=== PATIENT | male | born 1940 | race Caucasian/White ===

== ENCOUNTER 2017-11-16 06:42 | Day surgery (SDC) | payer MEDICARE ==
[~2017-11-16] VITALS: Ht 177.8 cm; Wt 85.1 kg
[~2017-11-16 06:42] MED LIST: BUDE.5I NEB; BUSP15TA PO; BYST10TA2 PO; DIGO0.127 PO; FENO145T2 PO; FLUT50SP EACH NARE; LORA1TAB PO; LOVA40TA PO; NITR.3 SL; OMEP20TA PO; OXYC1SOL5 PO; PERF20NE NEB; PERI8.6T PO; TAMS.4 PO; TRAM50 PO; WARF2TAB PO
[2017-11-16] MEDS ORDERED: IOHEXOL 350 MG/ML 50 ML BTL (for Cath Lab) OTHER ONE (06:43)
[2017-11-16 07:30] VITALS: BP 141/76; PULSE 61; RESP 20; O2SAT 93
--- NOTE | 2017-11-16 07:45 | HHI.HP ---
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 Developed L LE rest pain but no tissue loss. Presents for angiographic evaluation. Past/Family/Social History Past Medical History PAD HTN COPD anxiety a fib XOL Past Surgical History L LE bypass umbilical hernia repair eye surgery vasectomy Social History nonsmoker Family History NC Home Medications Active Scripts Oxycodone W/ Acetaminophen (Oxycodone/Acetaminophen 5-325 mg/5Ml) 1 Tab Tab, 1 TAB PO q6h Y for PAIN 6-10, #40 TAB 0 Refills Prov:Wendy Calzada MD 11/26/14 Tramadol Hcl (Ultram) 50 Mg Tab, 50 MG PO Q8H Y for PAIN 1-5, #45 TAB 0 Refills Prov:Wendy Calzada MD 11/26/14 Tamsulosin HCl (Tamsulosin HCl) 0.4 Mg Cap, 0.4 MG PO DAILY, #30 CAP Prov:Wendy Calzada MD 11/25/14 Sennosides-Docusate Sodium (Omaira-Colace 8.6-50 mg) 1 Tab Tab, 1 TAB PO BID Y for CONSTIPATION, #60 TAB Prov:Wendy Calzada MD 11/25/14 Reported Medications Nitroglycerin (Nitrostat) 0.3 Mg Subl, 0.125 MG SL PRN, TAB FOR CHEST PAIN 11/08/14 Lorazepam (Lorazepam) 1 Mg Tab, 1 MG PO TID, TAB 11/08/14 Fluticasone Propionate (Nasal) (Fluticasone Propionate (Nasal)) 50 Mcg Spr, 1 SPRAY EACH NARE DAILY, BTLE 11/08/14 Digoxin (Digox 0.125 mg) 0.125 Mg Tab, 0.125 MG PO DAILY 11/08/14 Fenofibrate (Fenofibrate) 145 Mg Tab, 145 MG PO DAILY, TAB 11/08/14 Buspirone Hcl (Buspirone Hcl) 15 Mg Tab, 15 MG PO QID, TAB 11/08/14 Omeprazole 20 mg (Omeprazole 20 mg) 20 Mg Tab, 1 TAB PO DAILY, TAB 11/08/14 Nebivolol (Bystolic 10 Mg Tab) 10 Mg Tab, 10 MG PO DAILY, TAB 11/08/14 Lovastatin (Lovastatin) 40 Mg Tab, 40 MG PO BID, TAB 11/08/14 Formoterol Fumarate (Perforomist) 20 Mcg Neb, 20 MCG NEB BID NEB, BOX 11/08/14 Budesonide (Pulmicort) 0.5 Mg/2 Ml Liliam, 0.5 MG NEB BID, BOX 11/08/14 Warfarin Sod (Warfarin Sodium) 2 Mg Tab, 2 MG PO DAILY, TAB 11/08/14 Coded Allergies: No Known Allergies (Unverified , 11/18/14) Review of Systems Constitutional: DENIES: Diaphoretic episodes, Fatigue, Fever, Weight gain, Weight loss, Chills, Dizziness, Change in appetite, Night Sweats Respiratory: COMPLAINS OF: Shortness of breath Physical Exam Neuro: alert, DAVISON HEENT: NC/AT Neck: no JVD Heart: no M Lungs: clear and nonlabored Abdomen: soft, NT Extremities: no wounds Laboratory Tests Test 11/16/17 07:20 Caprini VTE Risk Assessment Caprini VTE Risk Assessment: No/Low Risk (score <= 1) Caprini Risk Assessment Model Point Value = 1 Point Value = 2 Point Value = 3 Point Value = 5 Age 41-60 Minor surgery BMI > 25 kg/m2 Swollen legs Varicose veins or History of unexplained or recurrent spontaneous Oral contraceptives or hormone replacement Sepsis (< 1 month) Serious lung disease, including pneumonia (< 1 month) Abnormal pulmonary function Acute myocardial infarction Congestive heart failure (< 1 month) History of inflammatory bowel disease Medical patient at bed rest Age 61-74 Arthroscopic surgery Major open surgery (> 45 min) Laparoscopic surgery (> 45 min) Malignancy Confined to bed (> 72 hours) Immobilizing plaster cast Central venous access Age >= 75 History of VTE Family history of VTE Factor V Leiden Prothrombin 15300I Lupus anticoagulant Anticardiolipin antibodies Elevated serum homocysteine Heparin-induced thrombocytopenia Other congenital or acquired thrombophilia Stroke (< 1 month) Elective arthroplasty Hip, pelvis, or leg fracture Acute spinal cord injury (< 1 month) Prophylaxis Regimen Total Risk Factor Score Risk Level Prophylaxis Regimen 0-1 Low Early ambulation 2 Moderate Order ONE of the following: *Sequential Compression Device (SCD) *Heparin 5000 units SQ BID 3-4 Higher Order ONE of the following medications: *Heparin 5000 units SQ TID *Enoxaparin/Lovenox 40 mg SQ daily (WT < 150 kg, CrCl > 30 mL/min) *Enoxaparin/Lovenox 30 mg SQ daily (WT < 150 kg, CrCl > 10-29 mL/min) *Enoxaparin/Lovenox 30 mg SQ BID (WT < 150 kg, CrCl > 30 mL/min) AND/OR *Sequential Compression Device (SCD) 5 or more Highest Order ONE of the following medications: *Heparin 5000 units SQ TID (Preferred with Epidurals) *Enoxaparin/Lovenox 40 mg SQ daily (WT < 150 kg, CrCl > 30 mL/min) *Enoxaparin/Lovenox 30 mg SQ daily (WT < 150 kg, CrCl > 10-29 mL/min) *Enoxaparin/Lovenox 30 mg SQ BID (WT < 150 kg, CrCl > 30 mL/min) AND *Sequential Compression Device (SCD) Assessment and Plan Plan LEFT leg angiogram DOCU post op Brijesh Bowman MD November 16, 2017 07:45
[2017-11-16] MEDS ORDERED: SERT-132 PO (07:53)
[2017-11-16] MEDS ORDERED: LOVA40TA PO (07:53)
[2017-11-16] MEDS ORDERED: FLUT50SP EACH NARE (07:53)
[2017-11-16] MEDS ORDERED: GABA100C4 PO (07:53)
[2017-11-16] MEDS ORDERED: NITR0.4S SL (07:53)
[2017-11-16] MEDS ORDERED: TAMS0.4C4 PO (07:53)
[2017-11-16] MEDS ORDERED: ASPI-516 PO (07:53)
[2017-11-16] MEDS ORDERED: BUSP15TA PO (07:53)
[2017-11-16] MEDS ORDERED: BUDE0.5S NEB (07:53)
[2017-11-16] MEDS ORDERED: BYST10TA2 PO (07:53)
[2017-11-16] MEDS ORDERED: FORM20NE INH (07:53)
[2017-11-16] MEDS ORDERED: PRIM50TA5 PO (07:53)
[2017-11-16] MEDS ORDERED: VITA10002 PO (07:53)
[2017-11-16] MEDS ORDERED: IPRA0.06 EACH NARE (07:53)
[2017-11-16] MEDS ORDERED: FENO160T PO (07:53)
[2017-11-16] MEDS ORDERED: EB-N3 PO (07:53)
[2017-11-16] MEDS ORDERED: CALC600T64 PO (07:53)
[2017-11-16] MEDS ORDERED: CILO100T PO (07:53)
[2017-11-16] MEDS ORDERED: OMEP20TA93 PO (07:53)
[2017-11-16] MEDS ORDERED: DIGO0.12 PO (07:53)
[2017-11-16] MEDS ORDERED: SODIUM BICARBONATE 100 MEQ in D5W 1000 ML IV SCH (08:00)
[2017-11-16 08:03] LABS: BICARBONATE 19.5 MEQ/L (21.0-32.0); CALCIUM 8.2 MG/DL (8.5-10.1); CREATININE 1.18 MG/DL (0.60-1.30)
[2017-11-16] MEDS ORDERED: HEPARIN-NS/PF INJ 1,000 ML ONE (09:18)
[2017-11-16] MEDS ORDERED: MIDAZOLAM HCL 2 MG/2 ML VIAL ONE (09:19)
--- NOTE | 2017-11-16 09:49 | HHI.PR ---
cc: Brijesh Bowman MD Immediate Post Op Note Procedure Date: November 16, 2017 Pre Op Diagnosis: L LE rest pain, PAD, failed bypass Post Op Diagnosis: L LE rest pain, PAD, failed bypass Surgeon: Brijesh Bowman Customer Experience Analyst(s): none Procedure: Aortogram w/ L LE angiogram Findings: 1. patent L EIA stent 2. Patent L MISDRAW HAND patch 3. Stenosis of proximal SFA, calcific occlusion of distal SFA with popliteal stenosis 4. Trifurcation occlusion with PT reconstitution Additional Information: R 4F sheath pulled in OR Complications: none Specimen(s) removed: none Anesthesia: MAC Drains: None Patient to: Other (DOCU) Patient Condition: Good Date/Time of Procedure: SEE SURGICAL CARE RECORD Brijesh Bowman MD November 16, 2017 09:49
--- NOTE | 2017-11-16 09:58 | CATHPROC ---
Flowline HIS Report Study Information Study Number Admission Scheduled Start Study Start [id number] Nov 16 2017 6:42AM 11/16/2017 Nov 16 2017 9:08AM [place] Service Cath Endovascular Study Admit Source Facility Department Other [facility] - Rotary Rig Engine Operator Physician and Clinical Staff Initial MD Bowman, Brijesh Patient Registration Clerk Marian Reed,KYLE Other cathlab, cathlab Recorder Maximus Cartwright RCIS(BS) Scrub Ollie Yepez,RT(R) Procedures Performed Procedure Location (Site) Vessel Name Abdominal Angiogram Abd Aorta (A3) Aorta Wire insertion Fem Art (right) Femoral Art Equipment Time Grocery Specialist Description Size Mfg Part Number Used/Scraped [id number] 09:23 ANGIO-DYNAMICS OMNI FLUSH 65CM CATHETER FR 4 Used *[id number] INTRODUCER SET, [id number] 09:13 [employer]. FR 5 Used MICROPUNCTURE *[id number] 09:11 [employer]ask INDUSTRIES PACK, CCL CUSTOM * Used *[id number] TUBING, PRESSURE INJECTION [id number] 09:11 NAMIC PACER 72" Used 72" *[id number] 09:11 NYCOMED OMNIPAQUE, 300 MG, 150ML 150ML [id number] Used 09:11 NYCOMED OMNIPAQUE, 300 MG, 50ML 50ML [id number] Used 09:25 NYCOMED OMNIPAQUE, 300 MG, 50ML 50ML [id number] Used 09:25 NYCOMED OMNIPAQUE, 300 MG, 50ML 50ML [id number] Used [id number] 09:11 FRANCOIS MED[employer] BLANKET,WARM AIR CCL * Used *[id number] 09:14 TERUMO MEDICAL SHEATH, FR4 TERUMO (10CM) FR 4 Used *[id number] WIRE, ANGLED GLIDE .035 [id number] 09:11 TERUMO MEDICAL/NAGI 260CM Used 260CM *[id number] History: Allergies Allergy Reaction No Known Allergies Labs Hgb (g/dl) 11.60-17.00 Not Drawn Creatinine (mg/dl) 0.50-1.30 Not Drawn CPK-MB (ng/ML) 0.50-3.60 Not Drawn Medication Medication Total Dose (Bolus/Oral) Medication Total Dosage/Unit 1% XYLOCAINE 20 mL FENTANYL 25 mcg VERSED 1 mg Medications (Bolus/Oral) Medication Time Given Dosage/Unit Administered By Reason VERSED 11/16/2017 9:30:19 AM 1 mg Marian Reed Patient arrived on 1 mg VERSED given by Marian Reed RN in Right Antecubital via Peripheral IV. O rdered by Brijesh Bowman. FENTANYL 11/16/2017 9:30:24 AM 25 mcg Marian Reed Patient arrived on 25 mcg FENTANYL given by Marian Reed RN in Right Antecubital via Peripheral I V. Ordered by Brijesh Bowman. 1% XYLOCAINE 11/16/2017 9:31:39 AM 20 mL Brijesh Bowman 20 mL 1% XYLOCAINE given in lab by Brijesh Bowman in Right Groin via Subcutaneous. Medication (Drip) Medication Time Given Dosage/Unit Concentration/Unit Diluent (ml) Solution IV Solutions 11/16/2017 9:11:55 AM 0 mL (IV) 500 NaCl .9 Patient arrived on IV Solutions given by gee flynn in Right Antecubital via Peripheral IV. Pum p/Drip Flow = 20 ml/hr using NaCl .9. Ordered by Brijesh Bowman. Initial Case Assessment Cardiovascular HR Rhythm NIBP Chest Pain 80 nsr 162/92 0 Edema Present Skin color Skin None Normal Warm Dry Circulatory - Right Pulses Femoral 3 Scale (0,1,2,3,4,d) Circulatory - Left Pulses Femoral 1 Scale (0,1,2,3,4,d) Neurological State Oriented to time-place- Alert Moves all extremities person Final Case Assessment Cardiovascular HR Rhythm NIBP Chest Pain 79 nsr 136/77 0 Edema Present Skin color Skin None Normal Warm Dry Circulatory - Right Pulses Femoral 3 Scale (0,1,2,3,4,d) Circulatory - Left Pulses Femoral 1 Scale (0,1,2,3,4,d) Neurological State Oriented to time-place- Alert Moves all extremities person Chronological Log Time Study Chronological Log 9:11:47 Patient arrived via Bed. 9:11:47 Patient Name, D.O.B, / Armband Verified By R.N. 9:11:48 Consent signed by the physician and the patient and verified by the Rotary Rig Engine Operator staff. 9:11:49 Pre-op and post- op instructions given; patient acknowledges understanding of instructions. 9:11:49 Verbal Stimulation=2 Physical Stimulation=2 Airway=2 Respiration=2 TOTAL=8. (0=absent, 1=guaman ited, 2=present) 9:11:50 Presedation assessment performed by Rotary Rig Engine Operator RN. 9::51 Immediate Presedation assesment performed by physician. 9::51 Patient has been NPO for More than 6Hrs. 9:11:52 Skin Breakdown-none per patient 9::53 Patient Warmer Placed on the Table. 9::53 Sylvain Prominences Protected 9:11:54 A # 22 IV was noted in the Antecubital (right). Grade = 0 Patient arrived on IV Solutions given by cathlab cathlab in Right Antecubital via Peripheral IV . Pump/Drip Flow = 20 9:11:55 ml/hr using NaCl .9. Ordered by Brijesh Bowman. 9:11:55 History and physical on the chart or being dictated. 9:15:00 MD arrived. Vitals capture started with the following parameters, Patient=Adult, Interval=5 min, Initial Pre xfthe=934 mmHg, 9:15:16 Deflation Rate=5 mmHg, Cuff placed on Right Ankle Assessment: Initial Case, HR=80 BPM, Rhythm=nsr, ULPU=530/92 mmhg, Chest Pain=0, Edema=None, Col or=Normal, Skin = Warm, Dry 9:15:39 Right Pulses: Femoral=3 Left Pulses: Femoral=1 Neurological: State=Alert, Ox3, DAVISON 9:16:15 HR=75 bpm, TVZR=149/92 mmhg, SpO2=95 %, Pain=0, Simran=10, Cole=2 9:20:40 Immediate Presedation assesment performed by physician. 9:20:57 HR=80 bpm, MPUE=006/80 mmhg, SpO2=94.0 %, Resp=12 B/min, Pain=0, Simran=10, Cole=2 9:22:38 Reference ECG taken 9:25:20 Bilateral groins prepped with 2% chlorhexidine, and draped after a 3 minute waiting time. 9:25:56 HR=81 bpm, RELD=137/86 mmhg, SpO2=95.0 %, Resp=10 B/min, Pain=0, Simran=10, Cole=2 Patient arrived on 1 mg VERSED given by Marian Reed RN in Right Antecubital via Peripheral IV. Ordered by 9:30:19 Brijesh Bowman. Patient arrived on 25 mcg FENTANYL given by Marian Reed RN in Right Antecubital via Periphe ral IV. Ordered by 9:30:24 Brijesh Bowman. Time Out. Correct patient, correct procedure, correct physician, labs, allergies, and equipment verified with labor trainer 9:30:28 team present. Fire risk assesment completed (see hard stop sheet for coding). Time Out Concu rred by MD and individual staff in procedure. 9:30:59 HR=77 bpm, PWAK=191/75 mmhg, SpO2=95.0 %, Resp=17 B/min, Pain=0, Simran=10, Cole=2 9:31:11 Case Start 9:31:13 Verbal Stimulation=2 Physical Stimulation=2 Airway=2 Respiration=2 TOTAL=8. (0=absent, 1=guaman ited, 2=present) 9:31:39 20 mL 1% XYLOCAINE given in lab by Brijesh Bowman in Right Groin via Subcutaneous. 9:32:39 Access site was Right Femoral Artery. 9:32:43 A INTRODUCER SET, MICROPUNCTURE FR 5 was advanced into the Fem Art (right) using the Percuta neous technique. A SHEATH, FR4 TERUMO (10CM) FR 4 was exchanged in the Fem Art (right). This was necessary in ord er to 9:32:46 accomodate a larger catheter. 9:33:45 A WIRE, ANGLED GLIDE .035 260CM 260CM was inserted via Fem Art (right). A OMNI FLUSH 65CM CATHETER FR 4 was advanced over a wire. OMNIPAQUE, 300 MG, 150ML 150ML was use d for 9:34:10 injections. 9:34:15 Wire removed 9:34:20 Through a OMNI FLUSH 65CM CATHETER FR 4, The Abdominal Aorta was injected with 10 cc's of co ntrast. 9:35:43 A WIRE, ANGLED GLIDE .035 260CM 260CM was inserted via Fem Art (right). 9:35:58 HR=76 bpm, NXBS=687/72 mmhg, SpO2=93.0 %, Resp=15 B/min, Pain=0, Simran=10, Cole=2 9:37:08 Through a OMNI FLUSH 65CM CATHETER FR 4, The Femoral Run-off was injected with 4 cc's per second. 9:37:16 Through a OMNI FLUSH 65CM CATHETER FR 4, The Femoral Run-off was injected with 4 cc's per second. 9:37:22 Through a OMNI FLUSH 65CM CATHETER FR 4, The Femoral Run-off was injected with 4 cc's per second. 9:38:07 Through a OMNI FLUSH 65CM CATHETER FR 4, The Femoral Run-off was injected with 4 cc's per second. 9:38:40 Through a OMNI FLUSH 65CM CATHETER FR 4, The Femoral Run-off was injected with 4 cc's per second. 9:40:55 HR=83 bpm, KZWN=630/77 mmhg, SpO2=93.0 %, Resp=16 B/min, Pain=0, Simran=10, Cole=2 9:42:24 Through a OMNI FLUSH 65CM CATHETER FR 4, The Femoral Run-off was injected with 4 cc's per second. 9:42:32 Catheter was removed over the glide wire 9:43:01 Case End Assessment: Final Case, HR=79 BPM, Rhythm=nsr, QWUT=067/77 mmhg, Chest Pain=0, Edema=None, Col or=Normal, Skin = Warm, Dry 9:43:07 Right Pulses: Femoral=3 Left Pulses: Femoral=1 Neurological: State=Alert, Ox3, DAVISON 9:43:19 Catheter(s) removed without difficulty 9:44:51 Sheath removed; pressure applied to access site. 9:44:53 No case complications noted. 9:44:53 Cine recording checked. 9:44:54 Bedside Report will be given. 9:44:56 Verbal Stimulation=2 Physical Stimulation=2 Airway=2 Respiration=2 TOTAL=8. (0=absent, 1=l imited, 2=present) 9:45:54 HR=81 bpm, SFIN=420/81 mmhg, SpO2=94.0 %, Resp=13 B/min, Pain=0, Simran=10, Cole=2 9:51:00 HR=82 bpm, FPZI=458/81 mmhg, SpO2=93.0 %, Resp=17 B/min 9:55:57 HR=84 bpm, NCLI=404/77 mmhg, SpO2=93.0 %, Resp=18 B/min, Pain=0, Simran=10, Cole=2 9:57:07 Sterile dressing applied to site 9:57:30 Vitals capture stopped. 9:57:34 [facility] - Contrast Media Used In Study Contrast Total Opened (mL) Total Used (mL) Total Wasted (mL) Omnipaque 40 40 0 End Study - Radiation Exposure Fluoro Time (minutes) 2.1 End Study - Sheaths Sheaths Pulled By Sheath Hold Time (min) Ollie Yepez 11 End Study - Patient Disposition Complications Transferred To Interventional Outcome No Rotary Rig Engine Operator Holding No attempt made
--- NOTE | 2017-11-17 05:13 | MP ---
cc: Brijesh Bowman MD DATE OF OPERATION: 11/16/2017 PREOPERATIVE DIAGNOSIS: Left lower extremity rest pain, failed distal bypass. POSTOPERATIVE DIAGNOSIS: Left lower extremity rest pain, failed distal bypass. PROCEDURE PERFORMED: Aortogram with left lower extremity angiogram. ATTENDING SURGEON: Brijesh Bowman MD SENIOR WINDOWS SYSTEMS ADMINISTRATOR SURGEON: None. ANESTHESIA: Local with sedation. INDICATIONS FOR PROCEDURE: Mr. Jon is a 76-year-old gentleman who had a left lower extremity bypass done several years ago, is known to be occluded, and his ABIs are 0.3. He is taken to the operating room for angiographic evaluation. There is no prior catheter-based imaging available for my review. DESCRIPTION OF PROCEDURE: Informed consent was obtained. The patient was taken to the operating room and placed supine on the operating table. An appropriate timeout was taken to ensure the patient's identity, operative site and planned procedure. The administration of antibiotics was not necessary, as this is a clean procedure without planned implantation of any foreign object. Everyone in the room agreed with the timeout and we proceeded. His bilateral groins were prepped and draped, and the right groin was anesthetized with 1% lidocaine. A 21-gauge micropuncture needle was used to access the right common femoral artery. This was exchanged using Seldinger technique for a micropuncture sheath through which a 0.035 Glidewire was introduced. The micropuncture sheath was changed for a 5-Scottish sheath. A VCF catheter was placed over the wire and through the sheath, and aortogram and pelvic arteriogram was obtained. The Glidewire and VCF catheter were navigated down to the left common femoral artery, and left lower extremity arteriogram was obtained. The wire catheter and sheath were removed. Pressure was held for hemostasis. There were no complications. I was present and scrubbed for the entire procedure. INTERPRETATION OF IMAGES: The patient has a patent terminal aorta, right common iliac artery, external iliac artery with stents. They are widely patent. The left common iliac artery has a potential stenosis proximally and then the external iliac artery is stented distally, but those are widely patent. The right hypogastric artery is patent, but the left hypogastric artery is occluded. The left common femoral artery is patent. There appears to be a patch associated with the profunda. There were two main profunda branches and they are patent. The SFA is patent and there is a high-grade proximal stenosis. The mid SFA is occluded with what appears to be a very calcific stenosis. The popliteal artery has a segmental occlusion, and the below-knee popliteal artery is atretic but patent, and then the peroneal artery is the main runoff down to the mid calf, but then it too occludes and the posterior tibial artery reconstitutes at the level of the ankle. MD JAMES Cornejo/KAM , 04:44 AM , 05:12 AM
[2017-11-18] MEDS ORDERED: LOMO2.5T PO (12:52)
[2017-11-18] MEDS ORDERED: XOLA150S SQ (12:52)
== END 2017-11-16 13:20 | disposition home or self-care (01) ==
LOC: HCAT 06:42 → HDIC 06:42 → HCAT 13:20
PROVIDERS: ATTEND Surgery
DX: I73.9 Peripheral vascular disease, unspecified (principal); I77.1 Stricture of artery; I10 Essential (primary) hypertension; J44.9 Chronic obstructive pulmonary disease, unspecified; I48.91 Unspecified atrial fibrillation; F41.9 Anxiety disorder, unspecified; Z79.01 Long term (current) use of anticoagulants
CPT/HCPCS: 36246; 75625; 75710; 80048; 99152; C1769; C1893; J1644; J2250; J3010; Q9967

== ENCOUNTER → 2017-11-23 | Day surgery (SDC) | payer MEDICARE ==
[~2017-11-23] VITALS: Ht 177.8 cm; Wt 81.3 kg
[~2017-11-23] MED LIST changes: +ASPI-516 PO; -BUDE.5I NEB; +BUDE0.5S NEB; +CHLORHEXIDINE GLUCONATE 2 % 1 PACK (2 CLOTHS) TOPICAL PRN; +CILO100T PO; +DEXAMETHASONE SOD PHOS 4 MG/ML VIAL IV ONE; +DIGO0.12 PO; -DIGO0.127 PO; +DO NOT ADM ANY ANTICOAGULANT DRUGS PRN; +FAMOTIDINE 20 MG/2 ML VIAL ONE; -FENO145T2 PO; +FENO160T PO; -FLUT50SP EACH NARE; +FORM20NE INH; +GABA100C4 PO; +HEPARIN-NS/PF INJ 500 ML ONE; +IOHEXOL 300 MG/ML 100 ML BTL (for Rad CT) IVCONTRAST ONE; +IOHEXOL 300 MG/ML 50 ML BTL (for RAD DIAG) IVCONTRAST ONE; +IPRA0.06 EACH NARE; +LACTATED RINGER'S 1000 ML IV PRN; +LIDOCAINE HCL 1% PF 5 ML SYRINGE OTHER ONE; +LOMO2.5T PO; -LORA1TAB PO; +METOPROLOL TARTRATE 25 MG TAB PO PRN; +MIDAZOLAM HCL 2 MG/2 ML VIAL ONE; +MORPHINE SULFATE 4 MG/ML INJ IV PRN; -NITR.3 SL; +NITR0.4S SL; +NORC5TAB PO; -OMEP20TA PO; +OMEP20TA93 PO; +ONDANSETRON HCL 4 MG/2 ML VIAL IV ONE; -OXYC1SOL5 PO; +PERC5TAB12 PO; -PERF20NE NEB; -PERI8.6T PO; +PHENYLEPH/NS 1000 MCG/10 ML SYR IV ONE; +PHENYLEPHRINE HCL 10 MG/ML VIAL IV ONE; +POVIDONE IODINE 5% (ANTISEPSIS KIT) 4 APPLICATIONS EACH NARE PRN; +PRIM50TA5 PO; +PROPOFOL 200 MG/20 ML AMP IV ONE; +PROTAMINE SULFATE 50 MG/5 ML VIAL ONE; +SERT-132 PO; +SODIUM CHLORID 0.9% 500 ML IV PRN; -TAMS.4 PO; +TAMS0.4C4 PO; -TRAM50 PO; -WARF2TAB PO; +XOLA150S SQ
--- NOTE | 2017-11-23 07:03 | PD.VS.PN ---
Pre-operative Note Pre-operative diagnosis: L LE failed bypass, rest pain, PAD Planned procedure: L LE angiogram and endovascular intervention Interval History: Pt has persistent pain in the LEFT leg. Breathing stable. Labs: Hct 44 plt 290 cr 1.2 INR 1.1 Blood: none needed EKG: pending Imaging: will make in OR Orders: NPO Post-operative destination: PACU and home Operative site marked: Yes Consent: Informed consent has been obtained from Greg Jon. I have explained the procedure in detail and discussed the risks, benefits, and potential complications. All questions have been answered. Brijesh Bowman MD November 23, 2017 07:03
[2017-11-23 07:40] LABS: AUTOMATED NEUTROPHIL # 5.4 TH/MM3 (1.8-7.7); BASOPHIL # 0.1 TH/MM3 (0-0.2); BASOPHIL % 0.9 % (0.0-2.0); EOSINOPHIL # 0.1 TH/MM3 (0-0.4); EOSINOPHIL % 1.2 % (0.0-4.0); HEMATOCRIT 40.3 % (39.0-51.0); HEMOGLOBIN 13.6 GM/DL (13.0-17.0); LYMPH % 13.3 % (9.0-44.0); MEAN CELL VOLUME 90.1 FL (80.0-100.0); MEAN CORPUSCULAR HEMOGLOBIN 30.5 PG (27.0-34.0); MEAN CORPUSCULAR HGB CONC 33.8 % (32.0-36.0); MEAN PLATELET VOLUME 7.7 FL (7.0-11.0); MONO % 9.3 % (0.0-8.0); MONOCYTE # 0.7 TH/MM3 (0-0.9); NEUT % 75.3 % (16.0-70.0); PLATELET COUNT 411 TH/MM3 (150-450); RED BLOOD COUNT 4.47 MIL/MM3 (4.50-5.90); WHITE BLOOD COUNT 7.2 TH/MM3 (4.0-11.0)
[2017-11-23 07:57] LABS: INTERNATIONAL NORMALIZED RATIO 1.1 RATIO; PROTHROMBIN TIME - PATIENT 10.7 SEC (9.8-11.6)
[2017-11-23 08:13] LABS: CALCIUM 9.1 MG/DL (8.5-10.1); CREATININE 1.13 MG/DL (0.60-1.30)
[2017-11-23 08:25] LABS: BANDS 6 % (0-6); LYMPHOCYTES 10 % (9-44); MONOCYTES 10 % (0-8); MYELOCYTES 2 % (0-0); NEUTROPHIL # MANUAL DIFF 5.8 TH/MM3 (1.8-7.7); POLYS (SEG NEUTROPHILS) 72 % (16-70)
[2017-11-23] MEDS: HEPARIN SODIUM - IV 10,000 UNITS/10 ML VIAL ONE ×2 (08:25→08:58)
--- NOTE | 2017-11-23 09:08 | HHI.PR ---
cc: Brijesh Bowman MD Immediate Post Op Note Procedure Date: November 23, 2017 Pre Op Diagnosis: PAD, L LE with failed bypass and rest pain Post Op Diagnosis: PAD, L LE with failed bypass and rest pain Surgeon: Brijesh Bowman Manager Of Loss Prevention Operations(s): none Procedure: L SFA/popliteal CAN TECHNICIAN Findings: occluded SFA, recanalized to BK pop Additional Information: R INSPECTOR HEATING AND REFRIGERATION Angioseal Complications: none Specimen(s) removed: none Estimated blood loss: 10mL Anesthesia: LMA Drains: None Fluids: 600mL IVF Patient to: PACU Patient Condition: Good Implant/Devices: SEE IMPLANT LOG (if applicable) Date/Time of Procedure: SEE SURGICAL CARE RECORD Brijesh Bowman MD November 23, 2017 09:08
--- NOTE | 2017-11-23 09:43 | MP ---
cc: Brijesh Bowman MD DATE OF OPERATION: 11/23/2017 PREOPERATIVE DIAGNOSIS: Left lower extremity peripheral arterial occlusive disease, failed bypass, rest pain. POSTOPERATIVE DIAGNOSIS: Left lower extremity peripheral arterial occlusive disease, failed bypass, rest pain. PROCEDURE PERFORMED: 1. Left SFA angioplasty with a 5 mm balloon. 2. Left popliteal artery angioplasty with a 4 mm balloon. ATTENDING SURGEON: Brijesh Bowman MD ANESTHESIA: LMA. INDICATIONS FOR PROCEDURE: Mr. Jon is an elderly gentleman with a left lower extremity bypass several years ago that has ultimately failed. He was taken to the operating room for endovascular treatment of his SFA disease in hopes that this will improve his rest pain to relieve his symptoms. DESCRIPTION OF PROCEDURE: Informed consent was obtained from the patient. He was taken to the operating room and placed supine on the operating table. An appropriate timeout was taken to ensure the patient's identity, the operative site and planned procedure. No antibiotics were necessary since this is a clean procedure without implantation of any foreign object. Everyone in the room agreed with the timeout and we proceeded. His bilateral groin and left leg were prepped and draped and a 21-gauge micropuncture needle was used to access the right common femoral artery. This was exchanged Seldinger technique through micropuncture sheath, through which was 0.035 Glidewire was introduced. The micropuncture sheath were exchanged for a 5-Mosotho sheath and a VCF catheter was placed over the wire and through the sheath. The Glidewire was navigated down to the left common femoral artery and VCF catheter was advanced over this. The patient was systemically heparinized with 5000 units of IV heparin. A Campbell wire was introduced and the VCF catheter and 5-Mosotho sheath were removed, and a 6-Mosotho 55 cm El sheath was introduced. A 0.014, GAS WELL PUMPER wire and 0.035 CXI catheter used to navigate down to the popliteal artery and indeed into the below-knee popliteal artery and the popliteal artery was angioplastied with a 4 mm balloon and the SFA was angioplastied with a 5 mm balloon. The completion angiogram showed excellent result without any recoil or extravasation or flow-limiting dissection. The infrageniculate were reconstituted via collaterals. The wire, catheter and sheath were removed and the groin was closed with an Angio-Seal. There were no complications. I was present and scrubbed and performed the entire procedure. MD JAMES Cornejo/KAYLYN , 09:24 AM , 09:42 AM
[2017-11-23 12:54] VITALS: BP 156/83; PULSE 79; RESP 18; TEMP 98.4; O2SAT 96
--- NOTE | 2017-11-23 13:57 | EKG ---
Date Performed: 11/23/2017 Time Performed: 07:02:27 PTAGE: 76 years EKG: Sinus rhythm INDETERMINATE AXIS RIGHT BUNDLE BRANCH BLOCK MARKED ST DEPRESSION, CONSIDER SUBENDOCARDIAL INJURY A BNORMAL ECG PREVIOUS TRACING : 11/18/2014 04.17 DOCTOR: Martín Santos Interpretating Date/Time 11/23/2017 13:54:13
== END | disposition home or self-care (01) ==
LOC: HCVO 05:36
PROVIDERS: ATTEND Surgery
DX: I73.9 Peripheral vascular disease, unspecified (principal); Z79.899 Other long term (current) drug therapy; I45.10 Unspecified right bundle-branch block; R94.31 Abnormal electrocardiogram [ECG] [EKG]
CPT/HCPCS: 01440; 37224; 75710; 80048; 85007; 85027; 85610; 93005; C1725; C1769; J1100; J1644; J2250; J2270; J2370; J2405; J2720; J3010; J7120; Q9967

== ENCOUNTER 2017-11-28 11:01 | Emergency (ER) | payer MEDICARE ==
[~2017-11-28] VITALS: Ht 177.8 cm; Wt 82.0 kg
[~2017-11-28 11:01] MED LIST changes: -CHLORHEXIDINE GLUCONATE 2 % 1 PACK (2 CLOTHS) TOPICAL PRN; -DEXAMETHASONE SOD PHOS 4 MG/ML VIAL IV ONE; -DO NOT ADM ANY ANTICOAGULANT DRUGS PRN; -FAMOTIDINE 20 MG/2 ML VIAL ONE; -HEPARIN-NS/PF INJ 500 ML ONE; -IOHEXOL 300 MG/ML 100 ML BTL (for Rad CT) IVCONTRAST ONE; -IOHEXOL 300 MG/ML 50 ML BTL (for RAD DIAG) IVCONTRAST ONE; -LACTATED RINGER'S 1000 ML IV PRN; -LIDOCAINE HCL 1% PF 5 ML SYRINGE OTHER ONE; -METOPROLOL TARTRATE 25 MG TAB PO PRN; -MIDAZOLAM HCL 2 MG/2 ML VIAL ONE; -MORPHINE SULFATE 4 MG/ML INJ IV PRN; -NORC5TAB PO; -ONDANSETRON HCL 4 MG/2 ML VIAL IV ONE; -PERC5TAB12 PO; -PHENYLEPH/NS 1000 MCG/10 ML SYR IV ONE; -PHENYLEPHRINE HCL 10 MG/ML VIAL IV ONE; -POVIDONE IODINE 5% (ANTISEPSIS KIT) 4 APPLICATIONS EACH NARE PRN; -PROPOFOL 200 MG/20 ML AMP IV ONE; -PROTAMINE SULFATE 50 MG/5 ML VIAL ONE; -SODIUM CHLORID 0.9% 500 ML IV PRN
[2017-11-28] MEDS ORDERED: IODIXANOL 320 MG/ML 10 ML VIAL (for Rad CT) IVCONTRAST ONE (11:02)
[2017-11-28 11:35] VITALS: BP 208/131; PULSE 141; RESP 24; TEMP 98.6; O2SAT 91
[2017-11-28 11:55] VITALS: BP 118/68; PULSE 77; RESP 18; O2SAT 99
[2017-11-28] MEDS ORDERED: RESP: ALBUTEROL 2.5 MG/IPRATROPIUM 0.5 MG NEB (SCH) NEB ONE (12:15)
[2017-11-28] MEDS ORDERED: ACETAMINOPHEN/HYDROcodone 325 MG/5 MG TAB PO ONE ×2 (12:15→18:00)
[2017-11-28 12:42] LABS: AUTOMATED NEUTROPHIL # 7.4 TH/MM3 (1.8-7.7); BASOPHIL # 0.1 TH/MM3 (0-0.2); BASOPHIL % 0.7 % (0.0-2.0); EOSINOPHIL # 0.1 TH/MM3 (0-0.4); EOSINOPHIL % 0.6 % (0.0-4.0); HEMATOCRIT 41.9 % (39.0-51.0); HEMOGLOBIN 13.9 GM/DL (13.0-17.0); LYMPH % 11.1 % (9.0-44.0); MEAN CELL VOLUME 90.4 FL (80.0-100.0); MEAN CORPUSCULAR HGB CONC 33.2 % (32.0-36.0); MEAN PLATELET VOLUME 8.1 FL (7.0-11.0); MONO % 8.6 % (0.0-8.0); MONOCYTE # 0.8 TH/MM3 (0-0.9); PLATELET COUNT 350 TH/MM3 (150-450); RED BLOOD COUNT 4.64 MIL/MM3 (4.50-5.90); RED CELL DISTRIBUTION WIDTH 16.5 % (11.6-17.2); WHITE BLOOD COUNT 9.4 TH/MM3 (4.0-11.0)
[2017-11-28 12:51] LABS: PROTHROMBIN TIME - PATIENT 10.6 SEC (9.8-11.6)
--- NOTE | 2017-11-28 12:59 | RADRPT ---
EXAM DATE: 11/28/2017 12:53 PM EDT AGE/SEX: 76 years / Male INDICATIONS: Shortness of breath with left leg pain. CLINICAL DATA: This is the patient's initial encounter. Patient reports that signs and symptoms have been present for 3 days and indicates a pain score of 0/10. MEDICAL/SURGICAL HISTORY: Chronic obstructive pulmonary disease. Hypertension. None. [place] [facility] [place]. . FINDINGS: There is a small nodular density overlying the lateral right upper lung zone. CT chest recommended fo r further evaluation. Cardiac contours are grossly satisfactory. No definite effusion. Deformity of the proximal left humer us may reflect presence of an osteochondroma CONCLUSION: Abnormal chest appearance. Recommend CT Electronically signed by: Dakota Reyes MD 11/28/2017 12:58 PM EDT
[2017-11-28 13:11] LABS: ALBUMIN 3.1 GM/DL (3.4-5.0); ALT (GPT) 28 U/L (12-78); AST (GOT) 24 U/L (15-37); BICARBONATE 18.2 MEQ/L (21.0-32.0); BLOOD UREA NITROGEN 11 MG/DL (7-18); CALCIUM 9.1 MG/DL (8.5-10.1); CHLORIDE 106 MEQ/L (98-107); CREATININE 1.44 MG/DL (0.60-1.30); GLOMERULAR FILTRATION RATE 48 ML/MIN (>89); GLUCOSE,RANDOM 119 MG/DL (74-106); SODIUM (NA) 140 MEQ/L (136-145)
[2017-11-28 13:13] LABS: ALKALINE PHOSPHATASE 89 U/L (45-117); TOTAL BILIRUBIN ADULT 0.8 MG/DL (0.2-1.0); TOTAL PROTEIN 7.4 GM/DL (6.4-8.2)
[2017-11-28 13:30] LABS: BANDS 1 % (0-6); LYMPHOCYTES 15 % (9-44); METAMYELOCYTES 1 % (0-1); MONOCYTES 5 % (0-8); MYELOCYTES 2 % (0-0); NEUTROPHIL # MANUAL DIFF 7.4 TH/MM3 (1.8-7.7); POLYS (SEG NEUTROPHILS) 75 % (16-70)
--- NOTE | 2017-11-28 16:11 | RADRPT ---
EXAM DATE: 11/28/2017 3:21 PM EDT AGE/SEX: 76 years / Male INDICATIONS: LEFT LEG PAIN,KENDELL HAD A ARTERIAL ANGIOPLASTY ON NOVEMBER 23 EVALUATE FOR CHEST MASS CLINICAL DATA: This is the patient's initial encounter. Patient reports that signs and symptoms have been present for 1 day and indicates a pain score of 10/10. MEDICAL/SURGICAL HISTORY: Cardiovascular disease. Hypertension. umbilical HERNIA . ARTERIAL ANGIO PLASTY RADIATION DOSE: 10.56 CTDI (mGy) COMPARISON: [facility] – [place], CHEST SINGLE AP, 11/28/2017. . TECHNIQUE: Multiple contiguous axial images were obtained through the chest during bolus infusion of 100 ml Visipaque 320 (iodixanol) nonionic water-soluble contrast as a cumulative dose for multiple exams. Images were obtained in suspended respiration using multiple row detector helical technique. Using automated exposure control and adjustment of the mA and/or kV according to patient size, radi ation dose was kept as low as reasonably achievable to obtain optimal diagnostic quality images. FINDINGS: Lungs: Severe centrilobular emphysematous changes in both upper lobes. Subpleural cysts are seen bila terally and there is biapical pleural-parenchymal scarring/fibrosis which is partially calcified. I d o not see a acute infiltrate or suspicious mass lesion, however. Mild atelectatic changes in the post erior mid right lower lobe. Granulomatous type calcification in the left base Mediastinum: There is good visualization of the great vessels of the middle mediastinum. No evidenc e of mediastinal or hilar adenopathy/mass. Atherosclerotic calcification of the coronary arteries.. Pleurae: Multiple subpleural blebs, predominantly in the upper lobes Axillae: Unremarkable. Bony Structures: Unremarkable. Miscellaneous: The examination was extended to include the upper abdomen, and both adrenal glands ar e normal in size and configuration. Diminished hepatic attenuation suggesting fatty infiltration. Gra nulomatous type calcifications in the spleen. Post Contrast: No abnormal areas of enhancement seen. CONCLUSION: 1. Severe emphysematous changes most prominent in the apices with bilateral partially calcified pleu ral parenchymal scarring. 2. I do not see a suspicious mass lesion in the right upper lobe to correspond to the abnormality on plain film. This may represent some superimposition of shadows. Subpleural blebs are identified bila terally. 3. Old granulomatous disease. 4. Hepatic fatty infiltration. Electronically signed by: Axel Spencer MD 11/28/2017 4:09 PM EDT
--- NOTE | 2017-11-28 16:24 | RADRPT ---
EXAM DATE: 11/28/2017 4:14 PM EDT AGE/SEX: 76 years / Male INDICATIONS: LEFT LOWER LEG PAIN ANGIO PLASTY DONE 11/23/17 CLINICAL DATA: This is the patient's initial encounter. Patient reports that signs and symptoms have been present for 1 day and indicates a pain score of 10/10. MEDICAL/SURGICAL HISTORY: Cardiovascular disease. Hypertension. UMBILICAL HERNIA . ANGIOPLASTY RADIATION DOSE: 4.21 CTDI (mGy) COMPARISON: [facility], CTA RUNOFF W 3D RECON, 11/18/2014. . TECHNIQUE: Volumetric scanning was performed using a multi-row detector CT scanner during bolus infu nichole of 100 ml Visipaque 320 (iodixanol) nonionic water-soluble contrast as a single exam dose. Th e data was post processed with a variety of visualization algorithms including full volume maximum in tensity projection, multi-planar sliding thin slab reformation, curved planar reformation, and surfac e rendering techniques. Using automated exposure control and adjustment of the mA and/or kV accordin g to patient size, radiation dose was kept as low as reasonably achievable to obtain optimal diagnost ic quality images. FINDINGS: The abdominal aorta is again notable for moderate atheromatous disease in patchy dense intimal calcif ication. Mild aortic ectasia. The visceral vessels are patent, however there is severe proximal disea se involving the SMA and left renal artery. Severe calcific iliac disease is present bilaterally. The re is been previous stenting of the distal external iliac on the left and the stent does appear to be patent. In the left leg, the left common femoral artery is widely patent and the profunda is patent. The supe rficial femoral artery is a small caliber diseased vessel with severe calcific disease in the adducto r hiatus leading to popliteal artery occlusion. Flow reconstitutes faintly in the proximal anterior t ibial artery which arises close to the knee joint level. The proximal peroneal and posterior tibial v essels also reconstitute, however the tibial vessels are all discontinuous in the left calf. In the contralateral right leg, the common femoral artery is widely patent. The profunda is patent. T he superficial femoral artery is small in caliber and diffusely diseased. The popliteal artery is sim ilarly small in caliber and diffusely diseased. High origin of the anterior tibial again noted on thi s right side with satisfactory three-vessel right calf runoff noted. CONCLUSION: Interval occlusion of the left popliteal artery and interval worsening of disease or multifocal occlu nichole in the tibial arteries. Electronically signed by: Dakota Reyes MD 11/28/2017 4:23 PM EDT
[2017-11-28] MEDS ORDERED: busPIRone HCL 10 MG TAB PO ONE (16:30)
[2017-11-28 16:41] VITALS: BP 146/78; PULSE 72; RESP 18; O2SAT 99
[2017-11-28] MEDS ORDERED: NORC5TAB PO (17:19)
--- NOTE | 2017-11-28 17:20 | PD ---
HPI Chief Complaint: Pain: Acute or Chronic Time Seen by Provider: 11:43 Travel History International Travel<30 days: No Contact w/Intl Traveler<30days: No Traveled to known affect area: No History of Present Illness HPI Patient is a 76 year old male who comes in complaining of left leg pain. He has had issues with this leg for a while and had an angio done by Dr. Bowman on November 23. He says the pain seems to be getting worse since the procedure. He has been taking Tylenol with Codeine since the procedure, which he says helps, but the pain just keeps coming back. He denies any injury to his leg. He says he has chronic shortness of breath, and it is no worse today. He denies any chest pain, fever or chills. Severity is mild to moderate. 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, Rt sided face twitching residual) Diabetes: No Diminished Hearing: No Endocrine: No Gastrointestinal Disorders: Yes (gerd, regular diarrhea per patient) GERD: Yes Genitourinary: Yes (enlarged prostate, low urine stream) Hepatitis: No Hypertension: Yes Immune Disorder: No Medical other: No Musculoskeletal: Yes (balance issues) Neurologic: Yes (neuropathy) Psychiatric: Yes (depression) Reproductive: No Respiratory: Yes (EMPHYSEMA, COPD, Asthma) Thyroid Disease: No Ulcer: No Past Surgical History Abdominal Surgery: Yes (UMBILIBCAL HERNIA) AICD: No Cardiac Surgery: No Ear Surgery: No Endocrine Surgery: No Eye Surgery: Yes (BILATERAL CATARACT REMOVAL ) Genitourinary Surgery: No Gynecologic Surgery: No Joint Replacement: No Neurologic Surgery: No Oral Surgery: No Pacemaker: No Thoracic Surgery: Yes (HERNIATED DISK) Other Surgery: Yes (BILATERAL ILIAC STENTS, R FEMORAL ENDARTECTOMY) Social History Alcohol Use: Yes (8 OZ/DAY) Tobacco Use: No Substance Use: No Allergies-Medications (Allergen,Severity, Reaction): Coded Allergies: adhesive tape (Verified Allergy, Severe, 11/23/17) removes thin skin cefdinir (Verified Allergy, Severe, Swelling, 11/23/17) Uncoded Allergies: paper tape (Adverse Reaction, Severe, 11/18/17) pulls off thin skin Reported Meds & Prescriptions Reported Meds & Active Scripts Active Reported Xolair Inj (Omalizumab) 150 Mg Vial 300 Mg SQ Q14D Lomotil (Diphenoxylate-Atropine) 2.5-0.025 Mg Tab 1 Tab PO Q6H PRN Nitrostat SL (Nitroglycerin) 0.4 Mg Subl 0.4 Mg SL DIRECTED PRN 1 tablet under the tongue as needed for chest pain. Repeat every 5 minutes for a total of 3 DOSES or call 911 if NO relief. Perforomist Neb (Formoterol Fumarate) 20 Mcg/2 Ml Neb 1 Nebule INH BID Budesonide Neb 0.5 Mg/2 Ml Neb 0.5 Mg NEB Q12HR NEB Aspirin 81 Mg Chew 81 Mg PO DAILY Gabapentin 100 Mg Cap 100 Mg PO TID Ipratropium Nasal 0.06% Varna 1 Varna EACH NARE BID Cilostazol 100 Mg Tab 100 Mg PO BID Digoxin 0.125 Mg Tab 0.125 Mg PO DAILY Sertraline (Sertraline HCl) 50 Mg Tab 50 Mg PO DAILY Buspirone (Buspirone HCl) 15 Mg Tab 15 Mg PO QID Fenofibrate 160 Mg Tab 160 Mg PO HS Bystolic (Nebivolol) 10 Mg Tab 10 Mg PO HS Omeprazole 20 Mg Tab 20 Mg PO DAILY Lovastatin 40 Mg Tab 40 Mg PO BID Tamsulosin (Tamsulosin HCl) 0.4 Mg Cap 0.4 Mg PO DAILY Primidone 50 Mg Tab 50 Mg PO DAILY Review of Systems Except as stated in HPI: all other systems reviewed are Neg General / Constitutional: No: Fever, Chills HENT: No: Headaches, Lightheadedness Cardiovascular: No: Chest Pain or Discomfort Respiratory: No: Shortness of Breath Gastrointestinal: No: Nausea Genitourinary: No: Dysuria Musculoskeletal: Positive: Pain Skin: No Rash, No Itching Neurologic: No: Weakness, Dizziness Physical Exam Narrative GENERAL: Awake and alert, in no acute distress. SKIN: Focused skin assessment warm/dry. No wounds or signs of infection. HEAD: Atraumatic. Normocephalic. EYES: Pupils equal and round. No scleral icterus. ENT: Mucous membranes pink and moist. NECK: Trachea midline. No JVD. CARDIOVASCULAR: Regular rate and rhythm. No murmur appreciated. RESPIRATORY: No accessory muscle use. Clear to auscultation. Breath sounds equal bilaterally. GASTROINTESTINAL: Abdomen soft, non-tender, nondistended. MUSCULOSKELETAL: No obvious deformities. No clubbing. No cyanosis. No edema. No calf tenderness. NEUROLOGICAL: Awake and alert. No obvious cranial nerve deficits. Motor grossly within normal limits. Normal speech. PSYCHIATRIC: Appropriate mood and affect; insight and judgment normal. Data Data Last Documented VS Vital Signs Date Time Temp Pulse Resp B/P (MAP) Pulse Ox O2 Delivery O2 Flow Rate FiO2 11/28/17 16:41 72 18 146/78 (100) 99 Room Air 11/28/17 11:35 98.6 Orders Orders Iv Access Insert/Monitor (11/28/17 12:04) Complete Blood Count With Diff (11/28/17 12:04) Comprehensive Metabolic Panel (11/28/17 12:04) Act Partial Throm Time (Ptt) (11/28/17 12:04) Prothrombin Time / Inr (Pt) (11/28/17 12:04) Cta Runoff W Iv Contrast W 3d (11/28/17 ) Acetamin-Hydrocod 325-5 Mg ([place] 5-325 (11/28/17 12:15) Chest, Single Ap (11/28/17 ) Albuterol-Ipratropium Neb (Duoneb Neb) (11/28/17 12:15) Ct Thorax/ Chest W Iv Contrast (11/28/17 ) Iodixanol 320 Inj (Rad Ct) (Visipaque 32 (11/28/17 11:02) Buspirone (Buspar) (11/28/17 16:30) Labs Laboratory Tests Test 11/28/17 12:18 White Blood Count 9.4 TH/MM3 Red Blood Count 4.64 MIL/MM3 Hemoglobin 13.9 GM/DL Hematocrit 41.9 % Mean Corpuscular Volume 90.4 FL Mean Corpuscular Hemoglobin 30.0 PG Mean Corpuscular Hemoglobin Concent 33.2 % Red Cell Distribution Width 16.5 % Platelet Count 350 TH/MM3 Mean Platelet Volume 8.1 FL Neutrophils (%) (Auto) 79.0 % Lymphocytes (%) (Auto) 11.1 % Monocytes (%) (Auto) 8.6 % Eosinophils (%) (Auto) 0.6 % Basophils (%) (Auto) 0.7 % Neutrophils # (Auto) 7.4 TH/MM3 Lymphocytes # (Auto) 1.0 TH/MM3 Monocytes # (Auto) 0.8 TH/MM3 Eosinophils # (Auto) 0.1 TH/MM3 Basophils # (Auto) 0.1 TH/MM3 CBC Comment AUTO DIFF Differential Total Cells Counted 100 Neutrophils % (Manual) 75 % Band Neutrophils % 1 % Lymphocytes % 15 % Monocytes % 5 % Eosinophils % 1 % Neutrophils # (Manual) 7.4 TH/MM3 Metamyelocytes 1 % Myelocytes 2 % Differential Comment FINAL DIFF MANUAL Platelet Estimate NORMAL Platelet Morphology Comment NORMAL Red Cell Morphology Comment NORMAL Prothrombin Time 10.6 SEC Prothromb Time International Ratio 1.0 RATIO Activated Partial Thromboplast Time 28.4 SEC Blood Urea Nitrogen 11 MG/DL Creatinine 1.44 MG/DL Random Glucose 119 MG/DL Total Protein 7.4 GM/DL Albumin 3.1 GM/DL Calcium Level 9.1 MG/DL Alkaline Phosphatase 89 U/L Aspartate Amino Transf (AST/SGOT) 24 U/L Alanine Aminotransferase (ALT/SGPT) 28 U/L Total Bilirubin 0.8 MG/DL Sodium Level 140 MEQ/L Potassium Level 3.6 MEQ/L Chloride Level 106 MEQ/L Carbon Dioxide Level 18.2 MEQ/L Anion Gap 16 MEQ/L Estimat Glomerular Filtration Rate 48 ML/MIN [facility] Medical Decision Making Medical Screen Exam Complete: Yes Emergency Medical Condition: Yes Medical Record Reviewed: Yes Differential Diagnosis worsening PVD vs cellulitis vs strain Narrative Course Patient is a 76-year-old male comes in complaining of left leg pain. I establish, labs sent. Labs show no acute abnormalities. CT of the leg performed shows worsening disease. Last 24 hours Impressions Chest X-Ray 11/28/17 Signed Impressions: CONCLUSION: Abnormal chest appearance. Recommend CT Chest CT 11/28/17 Signed Impressions: CONCLUSION: 1. Severe emphysematous changes most prominent in the apices with bilateral pa rtially calcified pleural parenchymal scarring. 2. I do not see a suspicious mass lesion in the right upper lobe to correspond to the abnormality on plain film. This may represent some superimposition of s hadows. Subpleural blebs are identified bilaterally. 3. Old granulomatous disease. 4. Hepatic fatty infiltration. Aorta w/Runoff CTA 11/28/17 Signed Impressions: CONCLUSION: Interval occlusion of the left popliteal artery and interval worsening of disea se or multifocal occlusion in the tibial arteries. I spoke with Dr. Bowman regarding the patient. He is very familiar with the patient and says that there is nothing more that can really be done other than pain control or amputation. He suggests discharged with pain control and follow -up in his office. I advised patient of this. He says the [place] I gave him here to help with his pain. He will be discharged with a prescription for this. Advised follow-up with Dr. Bowman this week. Advised return to the ED as needed for any worsening symptoms. Diagnosis Primary Impression: PAD (peripheral artery disease) Patient Instructions: General Instructions, Peripheral Vascular Disease (ED) Additional Instructions: Take pain medicine as needed. Follow-up with Dr. Bowman this week. Return to the ED as needed for any worsening symptoms. Scripts Hydrocodone-Acetaminophen ([place]) 5 Mg-325 Mg Tab 1 TAB PO Q6H Y for PAIN, #12 TAB 0 Refills Prov: Josey Li MD 11/28/17 Disposition: 01 DISCHARGE HOME Condition: Stable Josey Li MD Nov 28, 2017 17:20
[2017-12-06] MEDS ORDERED: FORM20NE INH (09:00)
== END 2017-11-28 17:53 | disposition home or self-care (01) ==
LOC: NEPE 11:01
DX: I70.202 Unspecified atherosclerosis of native arteries of extremities, left leg (principal); E78.00 Pure hypercholesterolemia, unspecified; I10 Essential (primary) hypertension; K21.9 Gastro-esophageal reflux disease without esophagitis
CPT/HCPCS: 71045; 71260; 75635; 80053; 85007; 85027; 85610; 85730; 94664; 99285; Q9967

== ENCOUNTER 2017-12-06 07:49 | Inpatient (IN) | payer MEDICARE ==
[~2017-12-06 07:49] MED LIST changes: +NORC5TAB PO
[2017-12-06] MEDS ORDERED: FORM20NE INH ×2 (09:00)
[2017-12-06] MEDS ORDERED: SODIUM CHLORID 0.9% 500 ML IV PRN (09:00)
[2017-12-06] MEDS ORDERED: LACTATED RINGER'S 1000 ML IV PRN (09:00)
[2017-12-06] MEDS ORDERED: METOPROLOL TARTRATE 25 MG TAB PO PRN (09:00)
[2017-12-06] MEDS ORDERED: CHLORHEXIDINE GLUCONATE 2 % 1 PACK (2 CLOTHS) TOPICAL PRN (09:00)
[2017-12-06] MEDS ORDERED: POVIDONE IODINE 5% (ANTISEPSIS KIT) 4 APPLICATIONS EACH NARE PRN (09:00)
[2017-12-06 09:26] LABS: AUTOMATED NEUTROPHIL # 7.3 TH/MM3 (1.8-7.7); BASOPHIL # 0.1 TH/MM3 (0-0.2); BASOPHIL % 1.4 % (0.0-2.0); EOSINOPHIL # 0.1 TH/MM3 (0-0.4); HEMATOCRIT 42.4 % (39.0-51.0); HEMOGLOBIN 14.1 GM/DL (13.0-17.0); LYMPH % 13.3 % (9.0-44.0); LYMPHOCYTE # 1.3 TH/MM3 (1.0-4.8); MEAN CELL VOLUME 89.1 FL (80.0-100.0); MEAN CORPUSCULAR HEMOGLOBIN 29.6 PG (27.0-34.0); MEAN CORPUSCULAR HGB CONC 33.2 % (32.0-36.0); MEAN PLATELET VOLUME 8.4 FL (7.0-11.0); MONO % 7.4 % (0.0-8.0); MONOCYTE # 0.7 TH/MM3 (0-0.9); NEUT % 76.9 % (16.0-70.0); PLATELET COUNT 406 TH/MM3 (150-450); RED BLOOD COUNT 4.76 MIL/MM3 (4.50-5.90); RED CELL DISTRIBUTION WIDTH 15.8 % (11.6-17.2); WHITE BLOOD COUNT 9.4 TH/MM3 (4.0-11.0)
[2017-12-06 09:35] LABS: INTERNATIONAL NORMALIZED RATIO 1.1 RATIO; PROTHROMBIN TIME - PATIENT 11.3 SEC (9.8-11.6)
[2017-12-06 09:43] LABS: BICARBONATE 17.3 MEQ/L (21.0-32.0); CALCIUM 9.5 MG/DL (8.5-10.1); CREATININE 1.29 MG/DL (0.60-1.30)
[2017-12-06] MEDS ORDERED: MORPHINE SULFATE 4 MG/ML INJ ONE ×2 (09:49→12:23)
--- NOTE | 2017-12-06 10:19 | PD.VS.PN ---
Pre-operative Note Pre-operative diagnosis: PAD, unreconstructable L LE with rest pain Planned procedure: L AKA Interval History: The patient and I have had several discussions about the options moving forward and he is ready for an AKA. Has continued debilitating pain. No F/C or other health changes that would preclude OR. Labs: Laboratory Results Test 12/06/17 08:55 Anion Gap 13 MEQ/L (5-15) Blood Urea Nitrogen 14 MG/DL (7-18) Creatinine 1.29 MG/DL (0.60-1.30) Random Glucose 98 MG/DL (74-106) Calcium Level 9.5 MG/DL (8.5-10.1) Sodium Level 137 MEQ/L (136-145) Potassium Level 4.0 MEQ/L (3.5-5.1) Chloride Level 107 MEQ/L (98-107) Carbon Dioxide Level 17.3 MEQ/L (21.0-32.0) Hematocrit 42.4 % (39.0-51.0) Hemoglobin 14.1 GM/DL (13.0-17.0) Mean Corpuscular Hemoglobin 29.6 PG (27.0-34.0) Mean Corpuscular Hemoglobin Concent 33.2 % (32.0-36.0) Mean Corpuscular Volume 89.1 FL (80.0-100.0) Mean Platelet Volume 8.4 FL (7.0-11.0) Platelet Count 406 TH/MM3 (150-450) Prothromb Time International Ratio 1.1 RATIO Red Blood Count 4.76 MIL/MM3 (4.50-5.90) Red Cell Distribution Width 15.8 % (11.6-17.2) White Blood Count 9.4 TH/MM3 (4.0-11.0) Blood: none needed Imaging: none Orders: NPO Ancef 2g IV OCTOR Post-operative destination: PACU Operative site marked: Yes Consent: Informed consent has been obtained from Greg Jon. I have explained the procedure in detail and discussed the risks, benefits, and potential complications. All questions have been answered. Brijesh Bowman MD Dec 06, 2017 10:19
--- NOTE | 2017-12-06 10:29 | PD.CAR.PN ---
CVT Progress Note Subjective/Hospital Course: 77-year-old gentleman with severe peripheral vascular disease and irreversible ischemia of the left leg. Based on my clinical examination and review of the records this patient has no other options as to vascular reconstruction by either endovascular or open means. Patient is debilitated and left leg is reversibly ischemic cold and pulseless Above-knee amputation is the only reasonable next step and I fully agree with Dr. Bowman Thanks J Objective: Vital Signs Date Time Temp Pulse Resp B/P (MAP) Pulse Ox O2 Delivery O2 Flow Rate FiO2 12/06/17 08:51 98.6 74 18 127/73 (91) 100 Labs: Laboratory Tests Test 12/06/17 08:55 White Blood Count 9.4 TH/MM3 (4.0-11.0) Red Blood Count 4.76 MIL/MM3 (4.50-5.90) Hemoglobin 14.1 GM/DL (13.0-17.0) Hematocrit 42.4 % (39.0-51.0) Mean Corpuscular Volume 89.1 FL (80.0-100.0) Mean Corpuscular Hemoglobin 29.6 PG (27.0-34.0) Mean Corpuscular Hemoglobin Concent 33.2 % (32.0-36.0) Red Cell Distribution Width 15.8 % (11.6-17.2) Platelet Count 406 TH/MM3 (150-450) Mean Platelet Volume 8.4 FL (7.0-11.0) Neutrophils (%) (Auto) 76.9 % (16.0-70.0) Lymphocytes (%) (Auto) 13.3 % (9.0-44.0) Monocytes (%) (Auto) 7.4 % (0.0-8.0) Eosinophils (%) (Auto) 1.0 % (0.0-4.0) Basophils (%) (Auto) 1.4 % (0.0-2.0) Neutrophils # (Auto) 7.3 TH/MM3 (1.8-7.7) Lymphocytes # (Auto) 1.3 TH/MM3 (1.0-4.8) Monocytes # (Auto) 0.7 TH/MM3 (0-0.9) Eosinophils # (Auto) 0.1 TH/MM3 (0-0.4) Basophils # (Auto) 0.1 TH/MM3 (0-0.2) CBC Comment DIFF FINAL Differential Comment Prothrombin Time 11.3 SEC (9.8-11.6) Prothromb Time International Ratio 1.1 RATIO Blood Urea Nitrogen 14 MG/DL (7-18) Creatinine 1.29 MG/DL (0.60-1.30) Random Glucose 98 MG/DL (74-106) Calcium Level 9.5 MG/DL (8.5-10.1) Sodium Level 137 MEQ/L (136-145) Potassium Level 4.0 MEQ/L (3.5-5.1) Chloride Level 107 MEQ/L (98-107) Carbon Dioxide Level 17.3 MEQ/L (21.0-32.0) Anion Gap 13 MEQ/L (5-15) Estimat Glomerular Filtration Rate 54 ML/MIN (>89) Result Diagram: 12/06/17 0855 12/06/17 0855 Robson Yuen MD Dec 06, 2017 10:29
[2017-12-06] MEDS ORDERED: ceFAZolin 2 GM PREMIX 50 ML ONE (11:09)
--- NOTE | 2017-12-06 11:54 | HHI.PR ---
cc: Brijesh Bowman MD Immediate Post Op Note Procedure Date: Dec 06, 2017 Pre Op Diagnosis: Unreconstructable PAD, L LE rest pain Post Op Diagnosis: Unreconstructable PAD, L LE rest pain Surgeon: Brijesh Bowman Weight Loss Physician(s): Brijesh Vance Procedure: L AKA Findings: decent tissue, no infection Specimen(s) removed: L leg Estimated blood loss: 100mL Anesthesia: LMA Drains: None Fluids: 550 IVF Patient to: PACU Patient Condition: Good Date/Time of Procedure: SEE SURGICAL CARE RECORD Brijesh Bowman MD Dec 06, 2017 11:54
[2017-12-06] MEDS ORDERED: MAGNESIUM HYDROXIDE SUSP 30 ML CUP PO PRN (12:00)
[2017-12-06] MEDS ORDERED: ePHEDrine/NS 25 MG/5 ML SYRINGE IV ONE (12:00)
[2017-12-06] MEDS ORDERED: LACTULOSE SYRUP 20 GM/30 ML CUP PO PRN (12:00)
[2017-12-06] MEDS ORDERED: DIPHENOXYLATE/ATROPINE 2.5 MG/0.025 MG TAB PO PRN (12:00)
[2017-12-06] MEDS ORDERED: OMALIZUMAB SQ SCH (12:00)
[2017-12-06] MEDS ORDERED: BISACODYL 10 MG SUPP RECTAL PRN (12:00)
[2017-12-06] MEDS ORDERED: ONDANSETRON HCL 4 MG/2 ML VIAL IV ONE (12:00)
[2017-12-06] MEDS ORDERED: SENNOSIDES 8.6 MG TAB PO PRN (12:00)
[2017-12-06] MEDS ORDERED: LIDOCAINE HCL 1% PF 5 ML SYRINGE OTHER ONE (12:00)
[2017-12-06] MEDS ORDERED: PROPOFOL 200 MG/20 ML AMP IV ONE (12:00)
[2017-12-06] MEDS ORDERED: DO NOT ADM ANY ANTICOAGULANT DRUGS PRN (12:16)
[2017-12-06] MEDS ORDERED: *LABETALOL HCL 100 MG/20 ML VIAL PERIprocedural Use ONLY ONE (12:19)
--- NOTE | 2017-12-06 12:22 | MP ---
cc: Brijesh Bowman MD DATE OF OPERATION: 12/06/2017 PREOPERATIVE DIAGNOSIS: Unreconstructable left lower extremity peripheral arterial occlusive disease and rest pain. POSTOPERATIVE DIAGNOSIS: Unreconstructable left lower extremity peripheral arterial occlusive disease and rest pain. PROCEDURE PERFORMED: Left above-knee amputation. ATTENDING SURGEON: Brijesh Bowman MD CRM ARCHITECT SURGEON: Brijesh Abad. ANESTHESIA: LMA. INDICATIONS: Mr. Jon is a 77-year-old gentleman who had a failed left femoral to posterior tibial artery bypass surgery that was done several years ago. He has rest pain and ABIs of 0. He is taken to the operating room for an elective above-knee amputation. DESCRIPTION OF PROCEDURE: Informed consent was obtained from the patient, he was taken to the operating room and placed supine on the operating table. An appropriate timeout was taken to ensure the patient's identity, operative site, and planned procedure. The administration of 2 grams of Ancef was initiated prior to the skin incision and will be discontinued after a single preoperative dose. Everyone in the room agreed with the time-out and we proceeded. His left leg was prepped and draped. An incision was made above the knee, carried down through subcutaneous tissue with electrocautery. The incision was fish-mouthed medially and laterally and then the posterior muscle was divided with electrocautery. The bone was divided with an oscillating saw and the vessels were clamped and divided with Metzenbaum scissors. The specimen was passed off the table. Hemostasis was achieved with sutures and the wound was irrigated and closed with 2-0 Polysorb and skin vidal. The sponge and needle counts were correct at the end of the case. I was present, scrubbed and performed the entire procedure. Brijesh Bowman MD RJF/DL , 12:08 PM , 12:20 PM
[2017-12-06] MEDS ORDERED: *morphine SULFATE 8 MG/ML PERIprocedure ONLY ONE ×3 (12:30→13:06)
[2017-12-06] MEDS ORDERED: HEPARIN SODIUM - SQ 10,000 UNITS/ML VIAL ONE (12:49)
[2017-12-06] MEDS: busPIRone HCL 5 MG TAB PO SCH ×3 (13:00→22:38)
[2017-12-06] MEDS ORDERED: *ENALAPRILAT 1.25 MG/ML VIAL PERIprocedural Use ONLY ONE (13:06)
--- NOTE | 2017-12-06 14:51 | PD.VS.PN ---
Subjective POD #: 0 Procedure(s): L AKA Subjective/Hospital Course 77/M S/P L AKA Pt alert in NAD Dressing intact w/o D/S Objective Vitals/I&O Date Time Temp Pulse Resp B/P (MAP) Pulse Ox O2 Delivery O2 Flow Rate FiO2 12/06/17 08:51 98.6 74 18 127/73 (91) 100 12/06/17 12/06/17 12/06/17 07:00 15:00 23:00 Intake Total 550 ml Output Total 100 ml Balance 450 ml Exam: Alert in NAD L AKA dressing I/C/D L LE w/o swelling Laboratory Laboratory Tests Test 12/06/17 08:55 White Blood Count 9.4 Red Blood Count 4.76 Hemoglobin 14.1 Hematocrit 42.4 Mean Corpuscular Volume 89.1 Mean Corpuscular Hemoglobin 29.6 Mean Corpuscular Hemoglobin Concent 33.2 Red Cell Distribution Width 15.8 Platelet Count 406 Mean Platelet Volume 8.4 Neutrophils (%) (Auto) 76.9 Lymphocytes (%) (Auto) 13.3 Monocytes (%) (Auto) 7.4 Eosinophils (%) (Auto) 1.0 Basophils (%) (Auto) 1.4 Neutrophils # (Auto) 7.3 Lymphocytes # (Auto) 1.3 Monocytes # (Auto) 0.7 Eosinophils # (Auto) 0.1 Basophils # (Auto) 0.1 CBC Comment DIFF FINAL Differential Comment Prothrombin Time 11.3 Prothromb Time International Ratio 1.1 Blood Urea Nitrogen 14 Creatinine 1.29 Random Glucose 98 Calcium Level 9.5 Sodium Level 137 Potassium Level 4.0 Chloride Level 107 Carbon Dioxide Level 17.3 Anion Gap 13 Estimat Glomerular Filtration Rate 54 Assessment and Plan Assessment: (1) PAD (peripheral artery disease) Status: Chronic Plan 77/M S/P L AKA POD 0 Doing well Pain controlled Plan Continue Pain control Natacha Puente NP [facility]/[employer] [phone] Natacha Puente Dec 06, 2017 14:51
[2017-12-06] MEDS: HYDROmorphone HCL 2 MG TAB PO PRN ×2 (15:34→22:40)
[2017-12-06 16:00] VITALS: BP 122/73; PULSE 74; RESP 18; TEMP 97.8; O2SAT 98
[2017-12-06] MEDS: GABAPENTIN 100 MG CAP PO SCH (16:57)
[2017-12-06 20:00] VITALS: BP 129/64; PULSE 78; RESP 20; TEMP 97.4; O2SAT 95
[2017-12-06] MEDS: RESP: BUDESONIDE 0.5 MG/2 ML NEB NEB SCH (20:00)
[2017-12-06] MEDS ORDERED: FORMOTEROL INH SCH (21:00)
[2017-12-06] MEDS: CILOSTAZOL 100 MG TAB PO SCH (22:38)
[2017-12-06] MEDS: PRAVASTATIN SOD 40 MG TAB PO SCH (22:39)
[2017-12-06] MEDS: NEBIVOLOL 10 MG TAB PO SCH (22:39)
[2017-12-06] MEDS: FENOFIBRATE 145 MG TAB PO SCH (22:39)
[2017-12-06] MEDS: FAMOTIDINE 20 MG TAB PO SCH (22:39)
[2017-12-06] MEDS: DOCUSATE SODIUM 50 MG/SENNA 8.6 MG TAB PO SCH (22:39)
[2017-12-07] VITALS (8 sets, daily range): BP systolic 101–124; BP diastolic 56–65; PULSE 69–86; RESP 17–21; TEMP 97.6–98.2; O2SAT 93–96
[2017-12-07] MEDS: GABAPENTIN 100 MG CAP PO SCH ×4 (03:16→17:59)
[2017-12-07] MEDS: HYDROmorphone HCL 2 MG TAB PO PRN ×6 (03:16→23:46)
[2017-12-07 07:19] LABS: HEMATOCRIT 37.7 % (39.0-51.0); HEMOGLOBIN 12.7 GM/DL (13.0-17.0); MEAN CELL VOLUME 90.1 FL (80.0-100.0); MEAN CORPUSCULAR HEMOGLOBIN 30.5 PG (27.0-34.0); MEAN CORPUSCULAR HGB CONC 33.8 % (32.0-36.0); MEAN PLATELET VOLUME 8.3 FL (7.0-11.0); PLATELET COUNT 364 TH/MM3 (150-450); RED BLOOD COUNT 4.18 MIL/MM3 (4.50-5.90); WHITE BLOOD COUNT 8.7 TH/MM3 (4.0-11.0)
--- NOTE | 2017-12-07 07:26 | PD.VS.PN ---
Subjective POD #: 1 Procedure(s): Navin CAREN Subjective/Hospital Course looks good c/o stump pain juan c po Objective Vitals/I&O Date Time Temp Pulse Resp B/P (MAP) Pulse Ox O2 Delivery O2 Flow Rate FiO2 12/07/17 04:49 18 12/07/17 04:00 97.6 77 21 118/62 (80) 96 12/07/17 00:00 98.2 86 19 124/65 (84) 94 12/06/17 20:00 97.4 78 20 129/64 (85) 95 12/06/17 16:00 97.8 74 18 122/73 (89) 98 12/06/17 14:40 16 96 Room Air 12/06/17 14:30 68 16 153/83 (106) 100 12/06/17 14:00 70 16 158/80 (106) 98 Nasal Cannula 2 12/06/17 13:45 74 16 161/86 (111) 98 Nasal Cannula 2 12/06/17 13:30 70 16 165/88 (113) 98 Nasal Cannula 2 12/06/17 13:15 70 16 165/87 (113) 98 Nasal Cannula 2 12/06/17 13:00 70 16 184/95 (124) 98 Nasal Cannula 2 12/06/17 12:45 74 16 177/94 (121) 98 Nasal Cannula 2 12/06/17 12:30 74 16 175/85 (115) 99 Nasal Cannula 2 12/06/17 12:15 97.7 82 16 187/80 (115) 96 Nasal Cannula 2 12/06/17 08:51 98.6 74 18 127/73 (91) 100 12/07/17 12/07/17 12/07/17 07:00 15:00 23:00 Intake Total 240 ml Output Total 575 ml Balance -335 ml Exam: Navin FABIAN wrapped, mobile Laboratory Laboratory Tests Test 12/06/17 08:55 12/07/17 06:31 White Blood Count 9.4 8.7 Red Blood Count 4.76 4.18 Hemoglobin 14.1 12.7 Hematocrit 42.4 37.7 Mean Corpuscular Volume 89.1 90.1 Mean Corpuscular Hemoglobin 29.6 30.5 Mean Corpuscular Hemoglobin Concent 33.2 33.8 Red Cell Distribution Width 15.8 16.0 Platelet Count 406 364 Mean Platelet Volume 8.4 8.3 Neutrophils (%) (Auto) 76.9 Lymphocytes (%) (Auto) 13.3 Monocytes (%) (Auto) 7.4 Eosinophils (%) (Auto) 1.0 Basophils (%) (Auto) 1.4 Neutrophils # (Auto) 7.3 Lymphocytes # (Auto) 1.3 Monocytes # (Auto) 0.7 Eosinophils # (Auto) 0.1 Basophils # (Auto) 0.1 CBC Comment DIFF FINAL Differential Comment Prothrombin Time 11.3 Prothromb Time International Ratio 1.1 Blood Urea Nitrogen 14 Creatinine 1.29 Random Glucose 98 Calcium Level 9.5 Sodium Level 137 Potassium Level 4.0 Chloride Level 107 Carbon Dioxide Level 17.3 Anion Gap 13 Estimat Glomerular Filtration Rate 54 Assessment and Plan Assessment: (1) PAD (peripheral artery disease) Status: Chronic Plan POD#1 s/p L AKA overall looks good 1. F/U BMP 2. OOB/PT - ordered Discharge Planning 2-3 days to rehab Brijesh Bowman MD Dec 07, 2017 07:26
[2017-12-07 07:33] LABS: BICARBONATE 21.7 MEQ/L (21.0-32.0); CALCIUM 8.8 MG/DL (8.5-10.1); CREATININE 1.09 MG/DL (0.60-1.30)
[2017-12-07] MEDS: RESP: BUDESONIDE 0.5 MG/2 ML NEB NEB SCH ×2 (07:45→20:06)
[2017-12-07] MEDS: TAMSULOSIN HCL 0.4 MG CAP PO SCH (09:25)
[2017-12-07] MEDS: ASPIRIN 81 MG CHEW TAB PO SCH (09:26)
[2017-12-07] MEDS: PRAVASTATIN SOD 40 MG TAB PO SCH ×2 (09:26→22:17)
[2017-12-07] MEDS: PANTOPRAZOLE SOD 20 MG DELAYED RELEASE TAB PO SCH (09:27)
[2017-12-07] MEDS: FAMOTIDINE 20 MG TAB PO SCH ×2 (09:27→22:16)
[2017-12-07] MEDS: DIGOXIN 0.125 MG TAB PO SCH (09:27)
[2017-12-07] MEDS: DOCUSATE SODIUM 50 MG/SENNA 8.6 MG TAB PO SCH ×2 (09:27→21:00)
[2017-12-07] MEDS: SERTRALINE HCL 50 MG TAB PO SCH (09:27)
[2017-12-07] MEDS: PRIMIDONE 50 MG TAB PO SCH (09:28)
[2017-12-07] MEDS: busPIRone HCL 5 MG TAB PO SCH ×4 (09:28→22:16)
[2017-12-07] MEDS: CILOSTAZOL 100 MG TAB PO SCH ×2 (09:28→22:16)
[2017-12-07] MEDS: HEPARIN SODIUM - SQ 10,000 UNITS/ML VIAL SQ SCH ×2 (10:47→18:03)
[2017-12-07] MEDS: NEBIVOLOL 10 MG TAB PO SCH (22:16)
[2017-12-07] MEDS: FENOFIBRATE 145 MG TAB PO SCH (22:16)
[2017-12-08] VITALS: BP 138/69; PULSE 79; RESP 16; TEMP 97.9; O2SAT 94
[2017-12-08] MEDS: HEPARIN SODIUM - SQ 10,000 UNITS/ML VIAL SQ SCH ×3 (03:37→17:03)
[2017-12-08 08:43] VITALS: BP 128/65; PULSE 71; RESP 18; TEMP 97.4; O2SAT 98
[2017-12-08] MEDS: PRIMIDONE 50 MG TAB PO SCH (08:57)
[2017-12-08] MEDS: busPIRone HCL 5 MG TAB PO SCH ×4 (08:57→21:44)
[2017-12-08] MEDS: RESP: BUDESONIDE 0.5 MG/2 ML NEB NEB SCH ×2 (08:58→21:43)
[2017-12-08] MEDS: SERTRALINE HCL 50 MG TAB PO SCH (08:59)
[2017-12-08] MEDS: GABAPENTIN 100 MG CAP PO SCH ×3 (08:59→17:04)
[2017-12-08] MEDS: DIGOXIN 0.125 MG TAB PO SCH (08:59)
[2017-12-08] MEDS: PANTOPRAZOLE SOD 20 MG DELAYED RELEASE TAB PO SCH (09:00)
[2017-12-08] MEDS: FAMOTIDINE 20 MG TAB PO SCH ×2 (09:00→21:43)
[2017-12-08] MEDS: PRAVASTATIN SOD 40 MG TAB PO SCH ×2 (09:00→21:43)
[2017-12-08] MEDS: ASPIRIN 81 MG CHEW TAB PO SCH (09:00)
[2017-12-08] MEDS: HYDROmorphone HCL 2 MG TAB PO PRN ×3 (09:00→21:44)
[2017-12-08] MEDS: DOCUSATE SODIUM 50 MG/SENNA 8.6 MG TAB PO SCH ×2 (09:00→21:44)
[2017-12-08] MEDS: TAMSULOSIN HCL 0.4 MG CAP PO SCH (09:01)
[2017-12-08] MEDS: CILOSTAZOL 100 MG TAB PO SCH ×2 (09:01→21:43)
--- NOTE | 2017-12-08 10:45 | PD.VS.PN ---
Subjective POD #: 2 Procedure(s): L AKA Subjective/Hospital Course Pt eating breakfast this am alert in NAD Pt continue to looks good Pain controlled L AKA Dressing intact w/o D/S Objective Vitals/I&O Date Time Temp Pulse Resp B/P (MAP) Pulse Ox O2 Delivery O2 Flow Rate FiO2 12/08/17 08:43 97.4 71 18 128/65 (86) 98 12/08/17 00:00 97.9 79 16 138/69 (92) 94 12/07/17 20:00 97.9 79 17 109/60 (76) 93 12/07/17 16:00 72 12/07/17 16:00 98.0 73 18 117/56 (76) 94 12/07/17 12:40 97.6 76 18 101/56 (71) 93 12/07/17 12:00 69 12/08/17 12/08/17 12/08/17 07:00 15:00 23:00 Output Total 400 ml Balance -400 ml Exam: GENERAL: A&OX3,NAD SKIN: Warm and dry. L LE dressing intact w/o swelling or drainage Assessment and Plan Assessment: (1) PAD (peripheral artery disease) Status: Chronic Plan POD#2 Pt s/p L AKA Pain controlled Plan Continue pain control PT/OOB D/C Planning to [facility] tomorrow am Natacha Puente NP [facility] [phone] Discharge Planning Tomorrow am to [facility] Natacha Puente Dec 08, 2017 10:45
[2017-12-08 12:00] VITALS: BP 128/71; PULSE 79; RESP 18; TEMP 97.6; O2SAT 98
[2017-12-08 16:00] VITALS: BP 113/70; PULSE 70; RESP 18; TEMP 97.7; O2SAT 93
[2017-12-08 17:33] VITALS: BP 112/79; PULSE 76; RESP 14; TEMP 97.9; O2SAT 95
[2017-12-08 20:00] VITALS: BP 122/77; PULSE 75; PULSE 77; RESP 18; TEMP 98.1; O2SAT 95
[2017-12-08] MEDS: FENOFIBRATE 145 MG TAB PO SCH (21:44)
[2017-12-08] MEDS: NEBIVOLOL 10 MG TAB PO SCH (21:45)
[2017-12-09] VITALS: BP 111/65; PULSE 70; PULSE 75; RESP 17; TEMP 97; O2SAT 95
[2017-12-09] MEDS: HEPARIN SODIUM - SQ 10,000 UNITS/ML VIAL SQ SCH ×2 (03:17→09:37)
[2017-12-09 04:00] VITALS: BP 120/61; PULSE 66; RESP 17; TEMP 97.5; O2SAT 93
[2017-12-09 08:00] VITALS: PULSE 67
[2017-12-09 08:38] VITALS: BP 139/67; PULSE 70; RESP 18; TEMP 97.5; O2SAT 94
[2017-12-09] MEDS: RESP: BUDESONIDE 0.5 MG/2 ML NEB NEB SCH (08:54)
[2017-12-09] MEDS: HYDROmorphone HCL 2 MG TAB PO PRN ×2 (09:33→13:37)
[2017-12-09] MEDS: ASPIRIN 81 MG CHEW TAB PO SCH (09:35)
[2017-12-09] MEDS: GABAPENTIN 100 MG CAP PO SCH ×2 (09:36→12:10)
[2017-12-09] MEDS: busPIRone HCL 5 MG TAB PO SCH ×2 (09:36→12:11)
[2017-12-09] MEDS: TAMSULOSIN HCL 0.4 MG CAP PO SCH (09:36)
[2017-12-09] MEDS: DIGOXIN 0.125 MG TAB PO SCH (09:36)
[2017-12-09] MEDS: PANTOPRAZOLE SOD 20 MG DELAYED RELEASE TAB PO SCH (09:36)
[2017-12-09] MEDS: SERTRALINE HCL 50 MG TAB PO SCH (09:36)
[2017-12-09] MEDS: PRIMIDONE 50 MG TAB PO SCH (09:36)
[2017-12-09] MEDS: CILOSTAZOL 100 MG TAB PO SCH (09:37)
[2017-12-09] MEDS: PRAVASTATIN SOD 40 MG TAB PO SCH (09:37)
[2017-12-09] MEDS: FAMOTIDINE 20 MG TAB PO SCH (09:37)
[2017-12-09] MEDS: DOCUSATE SODIUM 50 MG/SENNA 8.6 MG TAB PO SCH (09:37)
--- NOTE | 2017-12-09 09:39 | PD.VS.PN ---
Subjective POD #: 3 Procedure(s): L AKA Subjective/Hospital Course Pt alert in NAD Pt continue to looks good Pain controlled L AKA Dressing intact w/o D/S Objective Vitals/I&O Date Time Temp Pulse Resp B/P (MAP) Pulse Ox O2 Delivery O2 Flow Rate FiO2 12/09/17 08:38 97.5 70 18 139/67 (91) 94 12/09/17 04:00 97.5 66 17 120/61 (80) 93 12/09/17 04:00 66 12/09/17 00:00 75 12/09/17 00:00 97.0 70 17 111/65 (80) 95 12/08/17 20:00 98.1 77 18 122/77 (92) 95 12/08/17 20:00 75 12/08/17 17:33 97.9 76 14 112/79 (90) 95 12/08/17 16:00 97.7 70 18 113/70 (84) 93 12/08/17 12:00 97.6 79 18 128/71 (90) 98 12/09/17 12/09/17 12/09/17 07:00 15:00 23:00 Intake Total 240 ml Output Total 200 ml Balance 40 ml Exam: GENERAL: A&OX3,NAD SKIN: Warm and dry. L LE dressing intact w/o swelling or drainage Assessment and Plan Assessment: (1) PAD (peripheral artery disease) Status: Chronic Plan POD#3 Pt s/p L AKA Pain controlled Plan Continue pain control PT/OOB Pt clear for D/C to [facility] [phone] Discharge Planning Today to Natacha Mcclure Dec 09, 2017 09:39
[2017-12-09] MEDS ORDERED: PERC5TAB12 PO (09:41)
--- NOTE | 2017-12-09 09:51 | PD.VS.DC ---
Discharge Summary Admission Date: Dec 06, 2017 at 07:49 Discharge Date: Dec 09, 2017 Admission Diagnosis: (1) PAD (peripheral artery disease) Discharge Diagnosis: (1) PAD (peripheral artery disease) ICD Codes: I73.9 - PAD (peripheral artery disease) Status: Chronic Brief History from admission 77/m w/ a hx of PAD (unreconstructable) Hx of worsening L LE rest pain Procedure(s): L AKA Significant Findings Alert in NAD L AKA dressing I/C/D L LE w/o swelling Laboratory Tests Test 12/07/17 06:31 Red Blood Count 4.18 MIL/MM3 (4.50-5.90) Hemoglobin 12.7 GM/DL (13.0-17.0) Hematocrit 37.7 % (39.0-51.0) Estimat Glomerular Filtration Rate 65 ML/MIN (>89) Hospital Course: 77/m w/ a hx of PAD (unreconstructable) Hx of worsening L LE rest pain POD 0 77/M S/P L AKA Pt alert in NAD Dressing intact w/o D/S POD 1 looks good c/o stump pain juan c po POD 2 Pt eating breakfast this am alert in NAD Pt continue to looks good Pain controlled L AKA Dressing intact w/o D/S POD 3 Pt alert Pt continues to look and feel well Pain controlled L AKA Dressing intact w/o D/S Pt clear for d/c to rehab Pt to F/U in 4W Arranged out pt f/u Checked E-Forcse- Pt with multiple medications as pt w/ severe pain Prescribed appropriate post operative pain medication - S/P L AKA Allergies Coded Allergies Type Severity Reaction Last Updated Verified adhesive tape Allergy Severe 12/06/17 Yes cefdinir Allergy Severe Swelling 12/06/17 Yes Uncoded Allergies Type Severity Reaction Last Updated Verified paper tape Adverse Reaction Severe 11/18/17 12/07/17 12/07/17 12/08/17 12/08/17 12/09/17 12/09/17 06:00 18:00 06:00 18: 06: 18:00 Intake Total 240 ml 480 ml 480 ml 240 ml Output Total 575 ml 650 ml 400 ml 350 ml Balance -335 ml 480 ml -650 ml 80 ml -110 ml Intake Oral 240 ml 480 ml 480 ml 240 ml Output Urine Total 575 ml 650 ml 400 ml 350 ml Bladder Scan Volume Amount 466 ml # Voids 1 Laboratory Tests Test 12/07/17 06:31 White Blood Count 8.7 TH/MM3 Red Blood Count 4.18 MIL/MM3 Hemoglobin 12.7 GM/DL Hematocrit 37.7 % Mean Corpuscular Volume 90.1 FL Mean Corpuscular Hemoglobin 30.5 PG Mean Corpuscular Hemoglobin Concent 33.8 % Red Cell Distribution Width 16.0 % Platelet Count 364 TH/MM3 Mean Platelet Volume 8.3 FL Blood Urea Nitrogen 12 MG/DL Creatinine 1.09 MG/DL Random Glucose 103 MG/DL Calcium Level 8.8 MG/DL Sodium Level 138 MEQ/L Potassium Level 3.8 MEQ/L Chloride Level 106 MEQ/L Carbon Dioxide Level 21.7 MEQ/L Anion Gap 10 MEQ/L Estimat Glomerular Filtration Rate 65 ML/MIN Orders Procedure Category Date Status Time Morphine Inj MED 12/06/17 Complete (Morphine Inj) 09:49 Cefazolin 2 Gm Premix MED 12/06/17 Complete (Ancef 2 Gm Premix 11:09 Am Admit Pre Op Care [facility] 12/06/17 Complete Admit To Inpatient ADMITTING 12/06/17 Transmitted Code Status CODE 12/06/17 Transmitted 11:54 Lot Porter / DERICK 12/06/17 In Process Telemetry 11:54 Activity Oob Ad Bridget DERICK 12/07/17 In Process 11:54 Activity Bed Rest DERICK 12/06/17 In Process 11:54 Diet Heart Healthy DIET 12/06/17 Transmitted Lunch Basic Metabolic Panel LAB 12/07/17 Complete (Bmp) 06:00 Cbc No Diff, Includes LAB 12/07/17 Complete Plts 06:00 Case Management CONS 12/06/17 Transmitted Consult Consult Pt Eval & PT 12/06/17 Logged Treat 11:54 Famotidine (Pepcid) MED 12/06/17 In Process 21:00 Oxycodone (Roxicodone) MED 12/06/17 In Process 12:00 Hydromorphone MED 12/06/17 In Process (Dilaudid) 12:00 Scd Bilateral/Knee DERICK 12/06/17 In Process High 11:54 Docusate Sodium-Senna MED 12/06/17 In Process (Omaira-Colace) 21:00 Magnesium Hydroxide MED 12/06/17 In Process Liq (Milk Of Magnesi 12:00 Sennosides (Senokot) MED 12/06/17 In Process 12:00 Bisacodyl Supp MED 12/06/17 In Process (Dulcolax Supp) 12:00 Lactulose Liq MED 12/06/17 In Process (Lactulose Liq) 12:00 Inpatient ADMITTING 12/06/17 Transmitted Certification Aspirin Chew (Aspirin MED 12/07/17 In Process Chew) 09:00 Budesonide Neb MED 12/06/17 In Process (Pulmicort Respule 20:00 Buspirone (Buspar) MED 12/06/17 In Process 13:00 Cilostazol (Pletal) MED 12/06/17 In Process 21:00 Digoxin (Lanoxin) MED 12/07/17 In Process 09:00 Diphenoxylate/Atropine MED 12/06/17 In Process Tab (Lomotil Tab) 12:00 Gabapentin (Neurontin) MED 12/06/17 In Process 13:00 Pravastatin MED 12/06/17 In Process (Pravachol) 21:00 Nebivolol (Bystolic) MED 12/06/17 In Process 21:00 Primidone (Mysoline) MED 12/07/17 In Process 09:00 Sertraline (Zoloft) MED 12/07/17 In Process 09:00 Tamsulosin (Flomax) MED 12/07/17 In Process 09:00 Fenofibrate (Tricor) MED 12/06/17 In Process 21:00 Patient Own Medication MED 12/06/17 In Process 21:00 (Nf) Omalizumab Inj MED 12/06/17 Complete (Xolair Inj) 12:00 Pantoprazole MED 12/07/17 In Process (Protonix) 09:00 *Labetalol Inj MED 12/06/17 Complete (*Trandate Inj 12:19 Fentanyl Inj MED 12/06/17 Complete (Fentanyl Inj) 12:22 Morphine Inj MED 12/06/17 Complete (Morphine Inj) 12:23 *Morphine Inj MED 12/06/17 Complete (*Morphine Inj 12:30 *Morphine Inj MED 12/06/17 Complete (*Morphine Inj 12:44 Heparin Inj (Heparin MED 12/07/17 In Process Inj) 11:00 Heparin Inj (Heparin MED 12/06/17 Complete Inj) 12:49 *Morphine Inj MED 12/06/17 Complete (*Morphine Inj 13:06 *Enalaprilat Inj MED 12/06/17 Complete (*Vasotec Inj 13:06 Nursing Information MED 12/06/17 Complete (Misc Nursing Inform 12:16 Class Iv Pacu Ea 30 [facility] 12/06/17 Complete MIN General/Pacu [facility] 12/06/17 Complete Post Anesthesia Oxygen [facility] 12/06/17 Complete Pacu Med Holding [facility] 12/06/17 Complete Hourly Ot Request For Service OT 12/07/17 Logged 09:55 Lidocaine Pf 1% Inj MED 12/06/17 Complete (Xylocaine-Mpf 1% In 12:00 Ephedrine/Ns 25 Mg/5 MED 12/06/17 Complete Ml Syr (Ephedrine/N 12:00 Ondansetron Inj MED 12/06/17 Complete (Zofran Inj) 12:00 Propofol 200 Mg/20 Ml MED 12/06/17 Complete Inj (Diprivan 200 12:00 Attending Discharge DISCHARGE 12/09/17 Transmitted Order Vital Signs Date Time Temp Pulse Resp B/P (MAP) Pulse Ox O2 Delivery O2 Flow Rate FiO2 12/09/17 08:38 97.5 70 18 139/67 (91) 94 12/09/17 04:00 97.5 66 17 120/61 (80) 93 12/09/17 04:00 66 12/09/17 00:00 75 12/09/17 00:00 97.0 70 17 111/65 (80) 95 12/08/17 20:00 98.1 77 18 122/77 (92) 95 12/08/17 20:00 75 12/08/17 17:33 97.9 76 14 112/79 (90) 95 12/08/17 16:00 97.7 70 18 113/70 (84) 93 12/08/17 12:00 97.6 79 18 128/71 (90) 98 12/08/17 08:43 97.4 71 18 128/65 (86) 98 12/08/17 00:00 97.9 79 16 138/69 (92) 94 12/07/17 20:00 97.9 79 17 109/60 (76) 93 12/07/17 16:00 72 12/07/17 16:00 98.0 73 18 117/56 (76) 94 12/07/17 12:40 97.6 76 18 101/56 (71) 93 12/07/17 12:00 69 12/07/17 08:00 97.9 73 18 106/61 (76) 94 12/07/17 07:30 72 12/07/17 04:49 18 12/07/17 04:00 97.6 77 21 118/62 (80) 96 12/07/17 00:00 98.2 86 19 124/65 (84) 94 12/06/17 20:00 97.4 78 20 129/64 (85) 95 12/06/17 16:00 97.8 74 18 122/73 (89) 98 12/06/17 14:40 16 96 Room Air 12/06/17 14:30 68 16 153/83 (106) 100 12/06/17 14:00 70 16 158/80 (106) 98 Nasal Cannula 2 12/06/17 13:45 74 16 161/86 (111) 98 Nasal Cannula 2 12/06/17 13:30 70 16 165/88 (113) 98 Nasal Cannula 2 12/06/17 13:15 70 16 165/87 (113) 98 Nasal Cannula 2 12/06/17 13:00 70 16 184/95 (124) 98 Nasal Cannula 2 12/06/17 12:45 74 16 177/94 (121) 98 Nasal Cannula 2 12/06/17 12:30 74 16 175/85 (115) 99 Nasal Cannula 2 12/06/17 12:15 97.7 82 16 187/80 (115) 96 Nasal Cannula 2 Discharge Condition: Good Discharge Disposition: Discharge to SNF Discharge Instructions: DIET Maintain a heart healthy diet ACTIVITY Activity as tolerated You may shower then pat dry incision NO tub baths or swimming until your incision is fully healed WOUND CARE Leave your incision open to air once your post operative dressing is removed ( tomorrow am) Call to report an increase in swelling, pain, drainage or redness MEDICATIONS You were prescribed a narcotic pain medication that may cause drowsiness- no driving while taking this medication You were prescribed a narcotic pain medication that may cause constipation- Take with an over the counter stool softener Any questions or concerns: Call [facility] at [facility] [phone] Natacha Puente Dec 09, 2017 09:51
[2017-12-09 12:00] VITALS: PULSE 69
[2017-12-09 12:34] VITALS: BP 126/71; PULSE 68; RESP 18; TEMP 97.4; O2SAT 94
== END 2017-12-09 14:48 | DRG 241 ==
LOC: HSDI 07:49 → N05A 15:03
PROVIDERS: ADMIT Surgery; ATTEND Surgery
PROC: 0Y6D0Z3 Detachment at Left Upper Leg, Low, Open Approach (ICD-10-PCS; principal; 2017-12-06 11:02)
DX: I70.222 Atherosclerosis of native arteries of extremities with rest pain, left leg (principal); I50.9 Heart failure, unspecified; I48.91 Unspecified atrial fibrillation; Z86.73 Personal history of transient ischemic attack (TIA), and cerebral infarction without residual deficits
CPT/HCPCS: 80048; 85025; 85027; 85610; 86850; 86900; 86901; 88307; 88311; 94640; 94664; J0690; J1644; J2270; J2405; J3010; J7120; J7626